=== PATIENT | female | born 1980 | race Native Hawaiian/Other Pacific Islander ===

== ENCOUNTER 2017-12-04 11:55 | Emergency (ER) | payer SELFPAY ==
[2017-12-04 13:19] VITALS: BP 114/64
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
== END 2017-12-04 14:27 | disposition home or self-care (01) ==
LOC: EDBD → ED 11:55
DX: E03.9 Hypothyroidism, unspecified (principal); Z76.0 Encounter for issue of repeat prescription; Z90.710 Acquired absence of both cervix and uterus
CPT/HCPCS: 99282